=== PATIENT | female | born 1970 | race Caucasian/White ===

== ENCOUNTER 2024-03-20 10:48 | Outpatient (REF) | payer MEDICAID, SELFPAY ==
[2024-03-20 14:37] LABS: MANUAL DIFF FLAG NO
[2024-03-20 14:45] LABS: Basophils Absolute Auto 0.1 X10*3/uL (0.0-0.2); Basophils Percent Auto 1.1 % (0-2); Eosinophils Absolute Auto 0.1 X10*3/uL (0.0-0.4); Eosinophils Percent Auto 1.8 % (0-4); Hematocrit 39.8 % (37.0-47.0); Hemoglobin 12.7 g/dl (12.0-16.0); Imm Gran Abs Auto 0.02 X10*3/uL (0.00-0.03); Imm Gran Pct Auto 0.3 % (0.0-0.4); Lymphocytes Absolute Auto 2.2 X10*3/uL (1.2-4.9); Lymphocytes Percent Auto 33.4 % (20-40); Mean Corpuscular HGB Conc 31.9 g/dl (31.0-35.0); Mean Corpuscular Hemoglobin 28.1 pg (27.0-33.0); Mean Corpuscular Volume 88.1 fL (80.0-98.0); Mean Platelet Volume 12.1 fL (9.4-12.3); Monocytes Absolute Auto 0.5 X10*3/uL (0.1-1.2); Neutrophils Absolute Auto 3.7 x10*3/uL (2.0-8.3); Neutrophils Percent Auto 55.4 % (45-73); Platelet Count 238 X10*3/uL (160-400); Red Blood Count 4.52 X10*6/uL (4.20-5.50); Red Cell Distribution Width 14.6 % (11.0-16.0); White Blood Count 6.6 X10*3/uL (4.8-10.8)
[2024-03-20 15:06] LABS: Alanine Aminotransferase 40 U/L (0-31); Albumin Level 4.1 g/dL (3.5-5.0); Alkaline Phosphatase 73 U/L (39-117); Anion Gap 11 (12-20); Aspartate Amino Transferase 25 U/L (5-31); Bilirubin Total 0.4 mg/dL (0.0-1.0); Blood Urea Nitrogen 14 mg/dL (9-16); Calcium 9.3 mg/dL (8.4-10.2); Carbon Dioxide 27 mmol/L (22-29); Chloride 107 mmol/L (96-108); Cholesterol 200 mg/dL (<200); Estimated Glomerular Filt Rate > 60; Glucose Random 89 mg/dL (60-115); HDL Cholesterol 36 mg/dL (>40); LDL Cholesterol Calculated 130 mg/dL (<100); Potassium 3.9 mmol/L (3.3-5.1); Sodium 141 mmol/L (135-145); Total Protein 7.5 g/dL (6.5-8.0); Triglycerides 171 mg/dL (<150)
[2024-03-20 15:27] LABS: Insulin 13 uU/mL (2-29); TSH reflex Free T4 2.32 uIU/mL (0.32-4.0)
[2024-03-21 04:57] LABS: HBS Num1 2.77 mIU/mL (0-7.99); HBc Num1 0.18 S/CO (0.00-0.79); HBsAGNum1 0.36 S/CO (0.00-0.99); Hepatitis B Core Antibody Nonreactive (Nonreactive); Hepatitis B Surface Antigen Negative (Negative); ~Hepatitis B Surface Antibody NONREACTIVE (Nonreactive)
== END 2024-03-20 10:49 | disposition home or self-care (01) ==
LOC: HO.CHCLDS 10:48
PROVIDERS: Visit Provider Family Medicine
DX: E66.01 Morbid (severe) obesity due to excess calories (principal); Z13.9 Encounter for screening, unspecified; L83 Acanthosis nigricans
CPT/HCPCS: 36415; 80053; 80061; 83525; 84443; 85025; 86704; 86706; 87340

== ENCOUNTER 2024-11-24 08:11 | Outpatient (REF) | payer MEDICAID, SELFPAY ==
--- NOTE | ~2024-11-24 | XR_ITS ---
EXAMINATION: XR KNEE 3 VIEWS RIGHT HISTORY: M17.11 - Unilateral primary osteoarthritis, right knee COMPARISON: There are no prior studies available for comparison. FINDINGS: Standing AP views of both knees and additional lateral and sunrise patellar views of the right knee are submitted. Osseous mineralization is normal. There is no fracture or dislocation. The joint spaces are preserved. The soft tissues are unremarkable. XR/XR knee RT 3V IMPRESSION: Unremarkable examination of the right knee. Electronically signed by: Elgin Cordova MD 11/24/2024 12:25 PM EDT
--- OUTSIDE RECORDS SUMMARY | 2024-11-24 08:19 | XMS_ITS | Encounter Summary ---
Author Organization [employer] Address [address] [place] [address] Care Team Providers Care In Process Inspector Name Role Phone Elenita Quintana MD Primary Care Provider [phone] Encounter Details Date Type Department Care Team (Late st Contact Info) Description 03/15/2024 Abstract [facility] [address] [place] [address] [place], [place] Social History Tobacco Use Types Packs/Day Years Used Date Smoking Tobacco: Never Assessed Housing Stability Answer Date Recorded What is your housing situation today? I have falguni john 03/10/[address] you li ve. Do you have problems with any of the following? None of the above 03/10/2024 Food Insecurity Answer Date Recorded Within the past 12 months, y ou worried that your food would run out before you got money to buy more: Never True 03/10/2024 Within the past 12 months,th e food you bought just didn't last and you didn't have enough money to get more: Never True Transportation Answer Date Recorded In the past 12 months, has l ack of transportation kept you from medical appts, meetings, work or from getting things needed for daily living? No 03/10/2024 Utilities Answer Date Recorded In the past 12 months, has t he electric, gas, oil or water company threatened to shut off services in your home? No 03/10/2024 Comments Unknown Sex and Gender Information Value Date Recorded Sex Assigned at Female 11/05/2023 5:27 PM EDT Legal Sex Female 3:27 PM EDT Gender Identity Female 11/05/2023 5:27 PM EDT Sexual Orientation Straight 03/21/2024 3: 52 PM EDT documented as of this encounter Plan of Treatment Not on file documented as of this encounter Procedures Procedure Name Priority Date/Time Associated Diagnosis Comments GYNECOLOGIC PAP TEST-AGE BASED GUIDELINE CERVICAL CANCER Routine 04/29/2023 12:00 AM EDT documented in this encounter Results * Gynecologic Pap Qass-Pvz-qochm Guideline for Cervical Cancer (Aptima??) and STDs (04/29/2023 12:00 AM EDT) ThinPrep?? vial (Cervical cells) us Historical Provider LAB CYTOLOGY ORDERABLES F inal Result [facility] [address] [place] [address] documented in this encounter Visit Diagnoses Not on filedocumented in this encounter Care Teams In Process Inspector Relationship Specialty Start Date End Date Elenita Quintana MD [address] [place] [address] PCP - General Family Medicine 03/20/24 documented as of this encounter
--- OUTSIDE RECORDS SUMMARY | 2024-11-24 08:19 | XMS_ITS | Clinical Summary ---
Author Organization [facility] Address [address] [place] [address] Care Team Providers Care Weaving Inspector Name Role Phone Margaux Nunez [facility] Primary Care Provider [phone] Source Comments PLEASE NOTE, if this patient is a minor, it may be UNLAWFUL to discuss sensitive information that is contained in these records (such as FAMILY PLANNING, MENTAL HEALTH or SUBSTANCE ABUSE) with the minor patient's parent or other person without the patient's specific authorization.[facility] Allergies No known active allergies Medications ibuprofen 800 mg tabletIndicatio ns:Chronic bilateral low back pain without sciatica Take 1 Tablet by mouth 3 (three) times daily as needed for pain 60 Tablet 1 04/21/2022 Active cyclobenzaprine (FLEXERIL) 10 mg tabletIndicatio ns:Chronic bilateral low back pain without sciatica Take 1 Tablet by mouth 3 (three) times daily as needed for muscle spasms 30 Tablet 04/21/2022 Active hydroCHLOROthia zide (MICROZIDE) 12.5 mg capsuleIndicati ons:Leg swelling Take 1 Capsule by mouth once daily For leg swelling 30 Capsule 2 04/21/2022 Active Active Problems Problem Noted Date Diagnosed Date Leg swelling 04/25/2022 Chronic lower back pain 04/25/2022 Pain of both heels 04/25/2022 Morbid obesity with BMI of 40.0-44.9, adult ([facility]) 04/25/2022 Immunizations Immunization Administration Dates Next Due Flu, Preservative Free 04/21/2022 TDAP 04/21/2022 Family History Medical History Relation Name Comments Colon Cancer Father Lung Cancer Maternal Grandmother Asthma Mother Colon Cancer Mother Hypertension Mother Thyroid Cancer Paternal Grandmother Relation Name Status Comments Father Maternal Grandmother Mother Paternal Grandmother Social History Tobacco Use Types Packs/Day Years Used Date Smoking Tobacco: Former Cigarettes Smokeless Tobacco: Never Tobacco Cessation:Counseling Given: Not Answered Alcohol Use Standard Drinks/Week Comments Yes 0 (1 standard drink = 0.6 oz pur e alcohol) social Social Connections Answer Date Recorded Connectedness 0 04/03/2024 Financial Resource Strain Answer Date R ecorded Financial Resource Strain 0 2021 Stress Answer Date Recorded Stress 0 04/21/2022 Physical Activity Answer Date Recorded Physical Activity 0 04/21/2022 Food Insecurity Answer Date Recorded Food 0 04/20/2024 Transportation Needs Answer Date Record ed Transportation 0 04/21/2022 Housing Stability Answer Date Recorded Housing 0 04/21/2022 Safety and Environment Answer Date Pedro Pablo rded Safety 0 04/21/2022 Utilities Answer Date Recorded Utilities 0 04/21/2022 Employment Answer Date Recorded Employment 0 04/21/2022 Comments No Sex and Gender Information Value Date Recorded Sex Assigned at Female 04/21/2022 7:53 AM PDT Legal Sex Female 7:29 AM PDT Gender Identity Female 04/21/2022 7:53 AM PDT Sexual Orientation Straight 04/21/2022 7: 53 AM PDT Last Filed Vital Signs Vital Sign Reading Time Taken Comments Blood Pressure 108/72 04/21/2022 10:49 AM EDT Pulse 79 04/21/2022 10:49 AM EDT Temperature 36.6 ??C (97.9 ??F) 04/21/2022 10:49 AM E DT Respiratory Rate 16 04/21/2022 10:49 AM EDT Oxygen Saturation 97% 04/21/2022 10:49 AM EDT Inhaled Oxygen Concentration - - Weight 111.8 kg (246 lb 8 oz) 04/21/2022 10:49 A M EDT Height 161.2 cm (5' 3.47 ) 04/21/2022 10:49 AM E DT Body Mass Index 43.03 04/21/2022 10:49 AM EDT Plan of Treatment Health Maintenance Due Date Last Done Comments Anxiety Screening 1972 HPV Screening 1972 Pap + HPV 1972 Tobacco Screening 1972 Imm-Hepatitis B (1 of 3 - 19 + 3-dose series) 1991 Cervical Cancer Screening 1993 Pap Smear 1993 Breast Cancer Screening (Mammogram) 2012 CT Colonography 2017 Colonoscopy 2017 Colorectal Cancer Screening 2017 FIT/gFOBT 2017 Fecal DNA 2017 Flexible Sigmoidoscopy 2017 Imm-Zoster, Recombinant (1 of 2) 2022 Hypertension Screening (#1) 04/21/2023 [id number] ( - season) 2024 Imm-Influenza (#1) 2024 04/21/2022 Alcohol and Drug Screen 07/26/2024 04/21/2022 Depression Annual Screen 07/26/2024 04/21/2022 Diabetes Screening 04/21/2025 04/21/2022, 04/21/2022 Lipid Screening 04/21/2027 04/21/2022 Imm-DTaP/Tdap/Td (2 - Td or Tdap) 04/21/2032 022 HIV Screening Completed 04/21/2022 Hepatitis C Screening Completed 04/21/2022 Cervical Ablation/Cold-Knife Conization Discontinued Cervical Cryotherapy Discontinued Colposcopy Discontinued Endometrial Biopsy Discontinued Excision/Leep Discontinued HPV Genotyping Discontinued Vaginal Pap Discontinued Vulvoscopy Discontinued Procedures Procedure Name Priority Date/Time Associated Diagnosis Comments HIV 1/2 AG & AB W/RFLX (4TH GEN) Routine 04/21/2022 11:57 AM EDT Morbid obesity with BMI of 40.0-44.9, adult (HCC-CMS) Pain of both heels Need for vaccination Vision blurred Chronic bilateral low back pain without sciatica Encounter for laboratory test HEPATITIS C AB W/RFLX HCV RNA, QT, RT PCR Routine 04/21/2022 11:57 AM EDT Morbid obesity with BMI of 40.0-44.9, adult (HCC-CMS) Pain of both heels Need for vaccination Vision blurred Chronic bilateral low back pain without sciatica Encounter for laboratory test COMPREHENSIVE METABOLIC PANEL Routine 04/21/2022 11:57 AM EDT Morbid obesity with BMI of 40.0-44.9, adult (HCC-CMS) Pain of both heels Need for vaccination Vision blurred Chronic bilateral low back pain without sciatica Encounter for laboratory test LIPID PANEL Routine 04/21/2022 11:57 AM EDT Morbid obesity with BMI of 40.0-44.9, adult (HCC-CMS) Pain of both heels Need for vaccination Vision blurred Chronic bilateral low back pain without sciatica Encounter for laboratory test from Last 3 Months or Most Recently Relevant to Health Maintenance Results * HEPATITIS C AB W/RFLX HCV RNA, QT, RT PCR (04/21/2022 11:57 AM EDT) HEPATITIS C ANTIBODY NON-REACT EDIN NON-REACT EDIN [facility] SIGNAL TO CUT-OFF 0.06 <1.00 [facility] Comment: HCV antibody was non-reactive. There is no laboratory evidence of HCV infection. In most cases, no further action is required. However, if recent HCV exposure is suspected, a test for HCV RNA (test code 90582) is suggested. For additional information please refer to http://education.Incentivyze/faq/ZEC32g6 (This link is being provided for informational/ educational purposes only.) Blood Blood / Unknown 04/21/2022 1 1:57 AM EDT 04/21/2022 11:58 AM EDT Margaux Nunze [facility] LAB - BLOOD DRAW Edited Result - Final [facility] [address] [address], [facility] [address] [address] * HIV 1/2 AG & AB W/RFLX (4TH GEN) (04/21/2022 11:57 AM EDT) HIV AG/AB, 4TH GEN NON-REAC TIVE NON-REAC TIVE [facility] Comment: HIV-1 antigen and HIV-1/HIV-2 antibodies were not detected. There is no laboratory evidence of HIV infection. PLEASE NOTE: This information has been disclosed to you from records whose confidentiality may be protected by state law. ??If your state requires such protection, then the state law prohibits you from making any further disclosure of the information without the specific written consent of the person to whom it pertains, or as otherwise permitted by law. A general authorization for the release of medical or other information is NOT sufficient for this purpose. ?? For additional information please refer to http://[employer]ics.Incentivyze/faq/POC772 (This link is being provided for informational/ educational purposes only.) The performance of this assay has not been clinically validated in patients less than 2 years old. Blood Blood / Unknown 04/21/2022 1 1:57 AM EDT 04/21/2022 11:58 AM EDT Margaux Nunez [facility] - BLOOD DRAW Final Result [facility] [address] [place] [address], [facility] [address] [place] [address],[place] [address] * (ABNORMAL) LIPID PANEL (04/21/2022 11:57 AM EDT) CHOLESTEROL, TOTAL 187 <200 mg/dL [facility] HDL CHOLESTEROL 41(L) > OR = 50 mg/dL [facility] TRIGLYCERIDES 194(H) <150 mg/dL [facility] LDL-CHOLESTEROL 115(H) 99 mg/dL (calc) [facility] Comment: Reference range: <100 Desirable range <100 mg/dL for primary prevention; ?? <70 mg/dL for patients with CHD or diabetic patients with > or = 2 CHD risk factors. LDL-C is now calculated using the Jose-Faizan calculation, which is a validated novel method providing better accuracy than the Friedewald equation in the estimation of LDL-C. Jose SS et al. FAYE. 2013;310(19): 7273-9780 (http://education.Coremetrics/faq/FLZ843) CHOL/HDLC RATIO 4.6 <5.0 (calc) [facility] NON-HDL CHOLESTEROL 146(H) <130 mg/dL (calc) [facility] Comment: For patients with diabetes plus 1 major ASCVD risk factor, treating to a non-HDL-C goal of <100 mg/dL (LDL-C of <70 mg/dL) is considered a therapeutic option. Blood Blood / Unknown 04/21/2022 1 1:57 AM EDT 04/21/2022 11:58 AM EDT Margaux Nunez [facility] - BLOOD DRAW Final Result [facility] [address] [address], [facility] [address] [address] * COMPREHENSIVE METABOLIC PANEL (04/21/2022 11:57 AM EDT) GLUCOSE 92 65 - 99 mg/dL [facility] Comment: ?Fasting reference interval UREA NITROGEN (BUN) 17 7 - 25 mg/dL [facility] CREATININE (blood) 0.69 0.50 - 0.99 mg/dL [facility] EGFR 106 > OR = 60 mL/min/1 .73m2 [facility] Comment: The eGFR is based on the CKD-EPI 2020 equation. To calculate the new eGFR from a previous Creatinine or Cystatin C result, go to https://www.kidney.org/professionals/ kdoqi/gfr%5Fcalculator BUN/CREATININE RATIO NOT APPLICABLE 6 - 22 [facility] SODIUM 138 135 - 146 mmol/L [facility] POTASSIUM 4.1 3.5 - 5.3 mmol/L [facility] CHLORIDE 104 98 - 110 mmol/L [facility] CARBON DIOXIDE 27 20 - 32 mmol/L [facility] CALCIUM 8.9 8.6 - 10.2 mg/dL [facility] PROTEIN, TOTAL 6.6 6.1 - 8.1 g/dL [facility] ALBUMIN 3.9 3.6 - 5.1 g/dL [facility] GLOBULIN 2.7 1.9 - 3.7 g/dL (calc) [facility] ALBUMIN/GLOBUL IN RATIO 1.4 1.0 - 2.5 (calc) [facility] BILIRUBIN, TOTAL 0.4 0.2 - 1.2 mg/dL [facility] ALKALINE PHOSPHATASE 58 31 - 125 U/L [facility] AST 21 10 - 35 U/L [facility] ALT 21 6 - 29 U/L [facility] Blood Blood / Unknown 04/21/2022 1 1:57 AM EDT 04/21/2022 11:58 AM EDT us Margaux [facility] - BLOOD DRAW Edited Result - Final [facility] [address] [address], [facility] [address] [address] from Last 3 Months or Most Recently Relevant to Health Maintenance Care Teams Weaving Inspector Relationship Specialty Start Date End Date Margaux Nunez FNP [address] [place] [address] PCP - General Internal Medicine 01/22/22
--- OUTSIDE RECORDS SUMMARY | 2024-11-24 08:19 | XMS_ITS | Encounter Summary ---
Author Organization [facility] Address [address] [place] [address] Care Team Providers Care Vacuum Applicator Operator Name Role Phone Elenita Quintana MD Primary Care Provider [phone] Encounter Details Date Type Department Care Team (Late st Contact Info) Description 03/15/2024 Orders Only [facility] [address] [place] [address] Provider, MD Patsy Social History Tobacco Use Types Packs/Day Years [...] Procedure Name Priority Date/Time Associated Diagnosis Comments CYTOLOGY, CONVENTIONAL PAP SMEAR, 1 SLIDE Routine 04/29/2023 11:33 AM EDT documented in this encounter Results * Cytology, Conventional Pap Smear, 1 Slide (04/29/2023 11:33 AM EDT) us Historical Provider LAB CYTOLOGY ORDERABLES F inal Result documented in this encounter Visit Diagnoses Not on filedocumented in this encounter Care Teams Vacuum Applicator Operator Relationship Specialty Start Date End Date Elenita Quintana MD [address] [place] [address] PCP - General Family Medicine 03/20/24 documented as of this encounter
--- OUTSIDE RECORDS SUMMARY | 2024-11-24 08:19 | XMS_ITS | Clinical Summary ---
Author Organization [facility] Address [address] [place] [address] Care Team Providers Care Manager Occupational Name Role Phone Deborah Garcia MD Primary Care Provider Social History Tobacco Use Types Packs/Day Years Used Date Smoking Tobacco: Never Assessed Comments Unknown Sex and Gender Information Value Date Recorded Sex Assigned at Not on file Legal Sex Female 7:32 PM EST Gender Identity Not on file Sexual Orientation Not on file Plan of Treatment Health Maintenance Due Date Last Done Comments Breast Cancer Screening 1972 DTaP,Tdap,and Td Vaccines (1 - Tdap) 1991 Hepatitis B Vaccines (1 of 3 - 19+ 3-dose series) 1991 Cervical Cancer Screening: P ap Smear 1993 Colorectal Cancer Screening: Colonoscopy 06/27/2022 Depression Screening 06/27/2022 HIV Screening 06/27/2022 Hepatitis C Screening 06/27/2022 Social Influencers of Health Screening 06/27/2022 Pneumococcal Vaccine: 50+ Ye ars (1 of 1 - PCV) 2022 Zoster Vaccines (1 of 2) 2022 COVID-19 Vaccine (1 - 2023-2 5 season) 2024 Influenza Vaccine (Season Ended) 2025 HIB Vaccines Aged Out No longer eligi ble based on patient's age to complete this topic HPV Vaccines Aged Out No longer eligi ble based on patient's age to complete this topic Hepatitis A Vaccines Aged Out No long er eligible based on patient's age to complete this topic IPV Vaccines Aged Out No longer eligi ble based on patient's age to complete this topic MMR Vaccines Aged Out No longer eligi ble based on patient's age to complete this topic Meningococcal ACWY Vaccine Aged Out N o longer eligible based on patient's age to complete this topic Meningococcal B Vaccine Aged Out No l onger eligible based on patient's age to complete this topic Pneumococcal Vaccine: Pediat rics (0 to 5 Years) and At-Risk Patients (6 to 64 Years) Aged Out No longer eligible b ased on patient's age to complete this topic RSV Immunization Patients Un zaid 20 months Aged Out No longer eligible b ased on patient's age to complete this topic Varicella Vaccines Aged Out No longer eligible based on patient's age to complete this topic Care Teams Manager Occupational Relationship Specialty Start Date End Date Deborah Garcia MD [address] [place] [address] PCP - General Internal Medicine 09/12/21
--- OUTSIDE RECORDS SUMMARY | 2024-11-24 08:19 | XMS_ITS | Clinical Summary ---
Author Organization [employer] Address [address] [facility] 7[address] [place] [address] Care Team Providers Care Railroad Auditor Name Role Phone Elenita Quintana MD Primary Care Provider [phone] Allergies No known active allergies Medications * This document contains information received from the source organization and may not represent a complete record from that organization. hydroquinone 4 % creamIndication s:Melasma Apply topically 2 times daily. 28 g 3 4 06/06/20 25 Active Sunscreen SPF50 lotionIndicatio ns:Melasma TO use daily when going out in the sun 296 mL 3 4 Active Tirzepatide-Perry ght Management (Zepbound) 2.5 MG/0.5ML solution auto-injectorIn dications:Morbi d obesity due to excess calories (CMS/HCC) Inject 0.5 mL (2.5 mg) under the skin 1 (one) time per week. 2 mL 2 4 Active Active Problems Problem Noted Date Diagnosed Date Family history of colon cancer 03/20/2024 Assessment & Plan (03/20/2024 10:12 AM EDT): Referring to GI for further evaluation. Melasma 03/20/2024 Keratoconus of both eyes 03/20/2024 Assessment & Plan (03/20/2024 10:12 AM EDT): Referral to Ophthalmology for further evaluation Morbid obesity due to excess calories 03/20/2024 Assessment & Plan (06/09/2024 4:16 PM EST): Pt has lost 4 lbs since last visit. Discussed additional weight loss treatments, prescribing Zepbound. Follow up 1-2 months after beginning treatment. Assessment & Plan (03/20/2024 10:14 AM EDT): Ordering lab work for further evaluation. Referral to grain spouter. Moderately severe depression 03/20/2024 PITER (generalized anxiety disorder) 03/20/2024 Assessment & Plan (03/20/2024 12:06 PM EDT): PROGRESS NOTE: ID: Aminata is a 53 y.o. Unknown don't know-identified cis-female with No previous hx of MH dx or sx No previous hx of MH services who presents for Anxiety and Depression During IBH Consult Aminata presenting with depressed mood, Tearful, irritable mood, loss of interests/pleasure , sense of isolation/loneliness , change in appetite or weight overeating, changes in sleep sleeping too much, fatigue/loss of energy, worthlessness and excessive worry/anxiety, difficulty controlling worry, anxiety/worry associated to restlessness and/or feeling keyed-up/On edge , easily fatigued , difficulty concentrating and/or mind going blank , irritability, muscle tension , and sleep disturbance sleeping too much, Fear , and sense of dread ; for a period of 18+ mo, for most or all symptoms in the context of financial instability, stress relationship with partner, language barrier, unemployed, health concerns, recent separation from partner, struggling to adjust to living in [place]. PLAN: (check all that apply) New/Additional Services needed Off-site services for Behavioral Health Integration Plan External OP therapy referral Patient Self Plan Patient to utilize skills provided in intervention , Patient to reach out to [facility] team as needed, Patient to engage in OP therapy , and Patient to reach out to [facility] as needed Pain of both heels 04/25/2022 Localized swelling of both lower extremities 07/2021 Lumbar back pain 04/25/2022 Resolved Problems Problem Noted Date Diagnosed Date Resolved Date Morbid obesity with BMI of 40.0-44.9, adult 04/25/2022 03/20/2024 Encounters Date Type Department Care Team Description 10/06/2024 Population Health Risk Score Community [facility] ([facility]) Department [address] [place] [phone] Provider, Population Health Generic from Last 3 Months Immunizations Name Administration Dates Next Due Influenza Injectable Quadriv alant Preservative Free IIV4 MDCK 07/29/2022 Influenza injectable quadrivalent preservative f ree 04/21/2022 Influenza, seasonal, injectable, preservative fr ee 06/09/2024 Tdap 04/21/2022 Family History Medical History Relation Name Comments Colon cancer Father Diabetes Maternal Grandfather Colon cancer Mother Uterine cancer Mother Relation Name Status Comments Father Maternal Grandfather Mother Social History Tobacco Use Types Packs/Day Years Used Date Smoking Tobacco: Former Cigarettes Passive Smoke Exposure: Never Smokeless Tobacco: Never Tobacco Cessation:Counseling Given: Not Answered Alcohol Use Standard Drinks/Week Comments Never 0 (1 standard drink = 0.6 oz pur e alcohol) Depression Answer Date Recorded Patient Health Questionnaire-9 Score 17 03/20/2024 Patient Health Questionnaire-9 Score 17 03/20/2024 Last PHQ-9: Questionnaire Data Not on file 0 03/20/2024 Housing Stability Answer Date Recorded What is [...] off services in your home? No 03/10/2024 Depression Answer Date Recorded Patient Health Questionnaire-2 Score 6 03/20/2024 Internet Access Answer Date Recorded Internet Access Q1 Yes 03/27/2024 Internet Access Q2 Not on file 03/27/2024 Comments No Sex and Gender Information Value Date Recorded Sex Assigned at Female 11/05/2023 5:27 PM EDT Legal Sex Female 3:27 PM EDT Gender Identity Female 11/05/2023 5:27 PM EDT Sexual Orientation Straight 03/21/2024 3: 52 PM EDT Last Filed Vital Signs Vital Sign Reading Time Taken Comments Blood Pressure 134/88 06/09/2024 9:34 AM EST Pulse 84 06/09/2024 9:34 AM EST Temperature 36.3 ??C (97.4 ??F) 06/09/2024 9:34 AM ES T Respiratory Rate 20 06/09/2024 9:34 AM EST Oxygen Saturation 98% 06/09/2024 9:34 AM EST Inhaled Oxygen Concentration - - Weight 112 kg (246 lb 6.4 oz) 06/09/2024 9:34 AM EST Height 160 cm (5' 3 ) 06/09/2024 9:34 AM EST Body Mass Index 43.65 06/09/2024 9:34 AM EST Plan of Treatment Health Maintenance Due Date Last Done Comments CT Colonography 1972 Colonoscopy 1972 Colorectal Cancer Screening 1972 Dental Oral Exam 1972 Dental Prophylaxis 1972 Dental X-Ray: Bitewings 1972 Dental X-Ray: Full Mouth 1972 FIT DNA/Cologuard 1972 FIT 1972 FOBT 1972 Sigmoidoscopy 1972 Alcohol/Substance Use Screening 1984 Family Planning (PISQ) 1987 Hepatitis C Screening 1990 Hepatitis B Vaccines (1 of 3 - 19+ 3-dose series) 1991 HPV/Cotest 2002 Pneumococcal Vaccine: 50+ Years (1 of 1 - PCV) 2022 Zoster Vaccines (1 of 2) 2022 COVID-19 Vaccine (2 - 2023-2 5 season) 2024 10/03/2020 Mammogram 11/02/2024 05/23/2024 SDOH Screening 03/10/2025 03/10/2024 Depression Screening 03/20/2025 03/20/2024, 03/20/2024 Tobacco Screening 06/09/2025 06/09/2024 Cervical Cancer Screening 04/29/2026 Pap Smear 04/29/2026 04/29/2023 Lipid Panel 03/20/2029 03/20/2024 DTaP/Tdap/Td Vaccines (2 - T d or Tdap) 04/21/2032 04/21/2022 RSV Patients and Patients Aged 60 years or older (1 - 1-dose 75+ series) 2047 HIV Screening Completed 04/21/2022 Influenza Vaccine Completed 06/09/2024, 07/29/2022, 04/21/2022 HIB Vaccines Aged Out No longer eligi [...] patient's age to complete this topic Meningococcal Vaccine Aged Out No marci carolee eligible based on patient's age to complete this topic RSV under 20 months Aged Out No longe r eligible based on patient's age to complete this topic Rotavirus Vaccines Aged Out No longer eligible based on patient's age to complete this topic Procedures Procedure Name Priority Date/Time Associated Diagnosis Comments BI MAMMOGRAM SCREENING TOMOSYNTHESIS BILATERAL Routine 05/23/2024 Breast cancer screening by mammogram LIPID PANEL, STANDARD Routine 03/20/2024 10:54 AM EDT Morbid obesity due to excess calories (CMS/[facility]) GYNECOLOGIC PAP TEST-AGE BASED GUIDELINE CERVICAL CANCER Routine 04/29/2023 12:00 AM EDT from Last 3 Months or Most Recently Relevant to Health Maintenance Results * BI Mammogram Screening Tomosynthesis Bilateral (05/23/2024) Anatomical Region Laterality Modality Breast Bilateral Mammography us Elenita Quintana MD IMG BI PROCEDURES Final Resul t * (ABNORMAL) Lipid Panel, Standard (03/20/2024 10:54 AM EDT) Triglycerides 171(H) <150 mg/dL [facility] Comment:Desirable Triglyceri de: less than 150 mg/dLBorderline High Triglyceride 150-199 mg/dLHigh Triglyceride: 200-499 mg/dLVery High Triglyceride: greater than or equal to 5OO mg/dL Cholesterol 200(H) <200 mg/dL [facility] Comment:Desirable Cholestero l: less than 200 mg/dLBorderline High Cholesterol: 200-239 mg/dLHigh Cholesterol: greater than 239 mg/dL LDL Cholesterol Calculated 130(H) <100 mg/dL [facility] Comment:Desirable LDL: less than 100 mg/dLNear Optimal/Above Optimal LDL: 110- 129 mg/dLBorderline High LDL: 130-159 mg/dLHigh LDL: 160-189 mg/dLVery High LDL: greater than or equal to 190 mg/dL HDL Cholesterol 36(L) >40 mg/dL [facility] Comment:Desirable HDL: great er than 40 mg/dL Note: This HDL assay may give artificially low results in patients with liver disease. Blood Venous blood specimen / Unknown 03/20/2024 10:54 AM EDT 03/20/2024 2:33 PM EDT Elenita Quintana MD LAB BLOOD ORDERABLES Final Re sult Performing Organization Address [facility] Co de Phone Number [facility] [address] [place] [phone] * Gynecologic Pap [id number] Guideline for Cervical Cancer (Aptima??) and STDs (04/29/2023 12:00 AM EDT) ThinPrep?? vial (Cervical cells) Historical Provider LAB CYTOLOGY ORDERABLES F inal Result Performing Organization Address [facility] Co de Phone Number [facility] [address] [place], [place] [phone] from Last 3 Months or Most Recently Relevant to Health Maintenance Insurance [facility] STAND ADULT Care Teams Railroad Auditor Relationship Specialty Start Date End Date Elenita Quintana MD [address] [place] [address] PCP - General Family Medicine 03/20/24
--- OUTSIDE RECORDS SUMMARY | 2024-11-24 08:19 | XMS_ITS | Encounter Summary ---
Author Organization [employer] Address [address] [place] [address] Care Team Providers Care Fur Dresser Name Role Phone Elenita Quintana MD Primary Care Provider [phone] Reason for Visit * Reason Onset Date Comments Appointment Request 08/08/2024 Encounter Details Date Type Department Care Team ([facility] st Contact Info) Description 08/08/2024 Telephone [facility] [address] [place] [address] Elenita Quintana MD [address] [place], [place] [phone] Appointment Request Social History Tobacco Use Types Packs/Day Years Used Date Smoking Tobacco: Former Cigarettes Passive Smoke Exposure: Never Smokeless Tobacco: Never Alcohol Use Standard Drinks/Week Comments Never 0 [...] PM EDT documented as of this encounter Miscellaneous Notes * Telephone Encounter - Rochelle Chavarria - 08/08/2024 11:45 AM EST Tc from pt requesting schedule 08/02 appt f/u zepbound. documented in this encounter Plan of Treatment Not on file documented as of this encounter Visit Diagnoses Not on filedocumented in this encounter Additional Health Concerns Assessment Noted Time PHQ-9 Depression Total Score: 17 024 11:35 AM EDT documented as of this encounter Care Teams Fur Dresser Relationship Specialty Start Date End Date Elenita Quintana MD [address] [place] [phone] PCP - General Family Medicine 03/20/24 documented as of this encounter
--- OUTSIDE RECORDS SUMMARY | 2024-11-24 08:19 | XMS_ITS | Encounter Summary ---
Author Organization [employer] Address [address] [facility] [address] [place] [address] Care Team Providers Care Online Marketing Specialist Name Role Phone Elenita Quintana MD Primary Care Provider [phone] Encounter Details Date Type Department Care Team (Late st Contact Info) Description 06/08/2024 Orders Only [facility] [address] [place] [address] Provider, MD Patsy Social History Tobacco Use [...] is your housing situation today? I have falguinjosse john 03/10/[address] you [...] Procedure Name Priority Date/Time Associated Diagnosis Comments HM ANAL PAP Routine 04/29/2023 9:01 AM EDT documented in this encounter Results * HM Anal PAP (04/29/2023 9:01 AM EDT) Anatomical Region Laterality Modality Other Historical Provider HEALTH MAINTENANCE Final Result documented in this encounter Visit Diagnoses Not on filedocumented in this encounter Additional Health Concerns Assessment Noted Time PHQ-9 Depression Total Score: 17 024 11:35 AM EDT documented as of this encounter Care Teams Online Marketing Specialist Relationship Specialty Start Date End Date Elenita Quintana MD [address] [place] [address] PCP - General Family Medicine 03/20/24 documented as of this encounter
== END 2024-11-24 08:12 | disposition home or self-care (01) ==
LOC: HO.HOSX 08:11
DX: M17.0 Bilateral primary osteoarthritis of knee (principal); M17.11 Unilateral primary osteoarthritis, right knee; M23.91 Unspecified internal derangement of right knee
CPT/HCPCS: 73562; 99212

== ENCOUNTER 2024-11-24 08:16 | Outpatient (AMB) | payer MEDICAID, SELFPAY ==
--- NOTE | 2024-11-24 08:32 | MHC.OFFVIS ---
Vital Signs 11/24/24 08:40 Height 5 ft 3 in Weight 170 lb BMI 30.1 Intake Visit Reasons: DIRECTOR MOBILE-RT knee sprain, DOI 09/21/24 Intake Note: Aminata a 54 year old female who presents today for a new patient evaluation of right knee sprain, DOI 09/21/24. Patient was referred by [facility] due to ongoing knee pain that was sustained from a slip and fall on snow/ice in front of her job. Patient reports when she was getting up from her fall, she fell again on her knee. She has been attending PT which has provided her with relief. Her current pain is located in the medial aspect of the knee and on the knee cap. She has tried knee brace and warm and cold compresses with relief. She is also has complaints of her left knee having pain as well. Continuous Drier Operator Services: Continuous Drier Operator Present (Jose ([phone])) Allergies No Known Allergies Allergy (Verified 11/24/24 08:36) HPI HPI DIRECTOR MOBILE-RT knee sprain, DOI 09/21/24: Details: Aminata a 54 year old female who presents today for a new patient evaluation of right knee sprain, DOI 09/21/24. Patient was referred by [facility] due to ongoing knee pain that was sustained from a slip and fall on snow/ice in front of her job. Patient reports when she was getting up from her fall, she fell again on her knee. She has been attending PT which has provided her with relief. Her current pain is located in the medial aspect of the knee and on the knee cap. She has tried knee brace and warm and cold compresses with relief. She is also has complaints of her left knee having pain as well. [facility] Social History (Updated 11/24/24 @ 08:37 by Jose Cruz Cain) Alcohol intake: current Alcohol intake frequency: holidays/special occasions only Patient Tobacco Use Status: Never used Tobacco Current occupational status: unemployed Review of Systems Const All systems reviewed & are unremarkable except as noted in HPI and below Physical Exam Vital Signs: BMI result Body Mass Index 30.1 Extrem Other: On inspection, there is no visible deformity of the right knee No edema, erythema, ecchymosis noted No lacerations, abrasions, open areas No evidence of infection Patient reports tenderness to palpation of the medial joint line and patellar tendon insertion No tenderness to lateral joint line, quad tendon insertion, posterior knee Patient is able to extend the left knee to 0 degrees and flex to approximately 120 degrees without difficulty No ligamentous laxity noted Pain with both varus and valgus testing Positive Jacklyn's in the medial compartment of the right knee Negative anterior ceramic engineering professor the right Distal sensation intact Capillary refill brisk Results Reviewed Results Reviewed: X-rays obtained in the office today and independently reviewed by me, Michael Shields PA-C, demonstrate mild osteoarthritis of bilateral knees. Assessment & Plan Assessment & Plan (1) Osteoarthritis of knees, bilateral: Code(s): M17.0 - Bilateral primary osteoarthritis of knee Category: Medical (2) Internal derangement of right knee: Code(s): M23.91 - Unspecified internal derangement of right knee Category: Medical Plan 1. Osteoarthritis of right knee 2. Internal derangement of right knee Patient is educated about this condition Patient is educated about the typical treatment course At this time, patient states she would like to continue with physical therapy and conservative pain management measures, as she feels these are helping her Patient states that if in 2-3 months, physical therapy is no longer helping, she would call for repeat evaluation and discussion of further treatment options, such as further imaging or injections For now, patient is advised to continue with PT Follow-up as needed Orders: Orders XR knee RT 3V Today M17.11 - Unilateral primary osteoarthritis, right knee Coding Level of Care Code New Pt Level 3 (20935) Diagnoses Osteoarthritis of knees, bilateral M17.0 Internal derangement of right knee M23.91
[2024-11-24 08:40] VITALS: BMI 30.1
== END 2024-11-24 08:59 | disposition home or self-care (01) ==
LOC: HO.HOS 08:16
DX: M17.0 Bilateral primary osteoarthritis of knee (principal); M23.91 Unspecified internal derangement of right knee
CPT/HCPCS: 99203

== ENCOUNTER → 2024-11-24 08:19 | Outpatient (BNV) | payer MEDICAID, SELFPAY | PROVIDERS: Visit Provider Radiology Diagnostic Radiology | DX: M25.561 Pain in right knee (principal) | CPT/HCPCS: 73562 ==